=== PATIENT | female | born 1995 | race Caucasian/White ===

== ENCOUNTER 2020-02-05 10:31 | Emergency (ER) | payer OTHER, SELFPAY ==
[2020-02-05 10:38] VITALS: BP 144/89; PULSE 100; RESP 20; TEMP 36.9; O2SAT 100
--- NOTE | 2020-02-05 10:52 | ED.GENADULT ---
HPI - General Adult General Chief complaint: Skin/Abscess/Foreign Body Stated complaint: swollen upper hip/boil on left thigh Time Seen by Provider: 02/05/20 10:52 Source: patient and RN notes reviewed Mode of arrival: ambulatory Limitations: no limitations History of Present Illness HPI narrative: 24-year-old female presents with complaints of with LT inner upper thigh with redness, tenderness, and swelling and intermittent nausea for the past 4 days. Swelling and tenderness to upper lip since this morning at 02:00am this morning. Benadryl 50mg this moring with little relief for lip. Warm compresses and Neosporin without relief. Tender to touch. No drainage. History of skin abscess without MRSA diagnosis. No fever, chills, myalgia, or facial swelling. Nausea without abdominal pain or vomiting. LMP 4 weeks ago and concern she might be . Remains active. The patient reports she have not been diagnosed with COVID-19. The patient reports she is not waiting for the results of a COVID-19 lab test. The patient reports she do not have fever, chills, weakness, or fatigue. The patient reports she do not have a new or worsening cough or shortness of breath. Denies chest pain. The patient reports she do not have any rhinorrhea, congestion, loss of taste, sore throat, and diarrhea. Tolerating po intake well. Denies recent traveling. Denies concerns for COVID-19 or exposures been home with limited outdoor exposure except for essential household needs, work, and return home. At this time, patient is not suspected of having COVID-19. Some parts of this dictation were generated by voice recognition software and may contain typographical and/or grammatical inaccuracies. Related Data Home Medications Medication Instructions Recorded Confirmed albuterol sulfate 1 puff INHALATION QID 02/05/20 02/05/20 cetirizine 10 mg PO DAILY 02/05/20 02/05/20 clonazepam 0.5 mg PO DAILY 02/05/20 02/05/20 cyclobenzaprine 10 mg PO HS 02/05/20 02/05/20 famotidine 20 mg PO DAILY 02/05/20 02/05/20 fluticasone propionate 1 spray INTRANASAL BID 02/05/20 02/05/20 gabapentin 300 mg PO QID 02/05/20 02/05/20 lamotrigine 100 mg PO DAILY 02/05/20 02/05/20 lamotrigine 150 mg PO DAILY 02/05/20 02/05/20 linaclotide [Linzess] 290 mcg PO DAILY 02/05/20 02/05/20 pantoprazole [Protonix] 40 mg PO QAM 02/05/20 02/05/20 trazodone 100 mg PO HS 02/05/20 02/05/20 Allergies Allergy/AdvReac Type Severity Reaction Status Date / Time No Known Allergies Allergy Verified 02/05/20 10:38 Review of Systems Review of Systems: Narrative: CONSTITUTIONAL: Denies fever, chills, sweats. EYES: Denies visual changes, redness, discharge. ENT: Denies rhinorrhea, congestion, sore throat, otalgia. CARDIOVASCULAR: Denies chest pain, palpitations, edema. RESPIRATORY: Denies dyspnea, wheezing, cough. GASTROINTESTINAL: Denies abdominal pain, vomiting, diarrhea. Complains of intermittent nausea. GENITOURINARY: Denies dysuria, hematuria, abnormal discharge. SKIN: Denies drainage, rash or itching. Left inner upper thigh with redness, tenderness, swelling. MUSCULOSKELETAL: Denies acute back pain, joint pain, or myalgia. NEUROLOGIC: Denies numbness or focal weakness. PSYCHIATRIC: Denies anxiety or depression. All systems reviewed & are unremarkable except as noted in HPI and below. [facility] Past Medical History Medical History (Updated 02/05/20 @ 17:03 by ALAN Dorsey) Anxiety Asthma Depression IBS (irritable bowel syndrome) Neuropathy Surgical History Surgical History (Updated 02/05/20 @ 11:17 by ALAN Dorsey) History of cholecystectomy History of elbow surgery History of vulvar vestibulectomy Family History Family History (Updated 02/05/20 @ 11:18 by ALAN Dorsey) Father Alcoholic Substance abuse Mother Alive and well Social History Social History (Updated 02/05/20 @ 11:20 by ALAN Dorsey) Smoking packs per day: 0.5 S
== END 2020-02-05 11:32 | disposition home or self-care (01) ==
PROVIDERS: Emergency Provider Nurse Practitioner Family
DX: L02.416 Cutaneous abscess of left lower limb (principal); F17.210 Nicotine dependence, cigarettes, uncomplicated
CPT/HCPCS: 81025; 99213; G0463

== ENCOUNTER 2020-04-20 17:33 | Emergency (ER) | payer OTHER, SELFPAY ==
[2020-04-20 17:48] VITALS: BP 156/85; PULSE 116; RESP 16; TEMP 36.4; O2SAT 99
--- NOTE | 2020-04-20 18:09 | ED.SKABFB ---
HPI - Skin/Abscess/Foreign Bdy General Chief complaint: Skin/Abscess/Foreign Body Stated complaint: rash Time Seen by Provider: 04/20/20 18:09 Source: patient and RN notes reviewed Mode of arrival: ambulatory Limitations: no limitations History of Present Illness HPI narrative: 24-year-old female presents with multiple complaints. She reports area area on her right inner thigh that is painful, red, has been getting redder, reports she has been using hydrocortisone cream without relief. She also reports chronic sinus congestion for approximately 1 month causing sinus headaches. Reports she has been taking Sudafed and Flonase. She also reports a red painful bump under her nose. She denies fever, malaise, chills, sweats. MD complaint: abscess/boil Related Data Home Medications Medication Instructions Recorded Confirmed albuterol sulfate 1 puff INHALATION QID 02/05/20 04/20/20 cetirizine 10 mg PO DAILY 02/05/20 04/20/20 clonazepam 0.5 mg PO DAILY 02/05/20 04/20/20 cyclobenzaprine 10 mg PO HS 02/05/20 04/20/20 famotidine 20 mg PO DAILY 02/05/20 04/20/20 gabapentin 300 mg PO QID 02/05/20 04/20/20 lamotrigine 100 mg PO DAILY 02/05/20 04/20/20 lamotrigine 150 mg PO DAILY 02/05/20 04/20/20 linaclotide [Linzess] 290 mcg PO DAILY 02/05/20 04/20/20 pantoprazole [Protonix] 40 mg PO QAM 02/05/20 04/20/20 trazodone 100 mg PO HS 02/05/20 04/20/20 Allergies Allergy/AdvReac Type Severity Reaction Status Date / Time No Known Allergies Allergy Verified 04/20/20 17:57 Review of Systems Review of Systems: Narrative: CONSTITUTIONAL: Denies malaise, chills, sweats, or fever. EYES: Denies visual changes, redness, or discharge. ENT: Reports rhinorrhea, congestion, sinus pain. Denies otalgia or sore throat. CARDIOVASCULAR: Denies chest pain, palpitations, or edema. RESPIRATORY: Denies cough or dyspnea. GASTROINTESTINAL: Denies abdominal pain, nausea, vomiting, diarrhea SKIN: Reports a boil on her right inner thigh, reports a red bump under her nose MUSCULOSKELETAL: Denies myalgia. NEUROLOGIC: Reports headache. All systems reviewed & are unremarkable except as noted in HPI and below PMFSH Past Medical History Medical History (Updated 04/20/20 @ 18:22 by Ashlie Gross NP) Anxiety Asthma Depression IBS (irritable bowel syndrome) Neuropathy Surgical History Surgical History (Updated 02/05/20 @ 11:17 by ALAN Dorsey) History of cholecystectomy History of elbow surgery History of vulvar vestibulectomy Family History Family History (Updated 02/05/20 @ 11:18 by ALAN Dorsey) Father Alcoholic Substance abuse Mother Alive and well Social History Social History (Updated 02/05/20 @ 11:20 by ALAN Dorsey) Smoking packs per day: 0.5 Smoking cigarettes per day: 10.0 Years smoked: 11 Smoking pack-years: 5.50 Smoking status: Current every day smoker Tobacco type: cigarettes Second hand tobacco smoke exposure: No Alcohol intake: current Substance use: current Substance use type: marijuana Gender identity (if verbalized by the patient): Female Comments At time of signature, agree with nursing past medical, surgical, social and family history. There is no relevant family history pertinent to the presenting complaint Exam Narrative: Exam Narrative: GENERAL: Well-appearing, well-nourished, and in no acute distress. HEAD: Normocephalic, atraumatic. EYES: PERRLA, conjunctivae clear ENT: Nares clear, turbinates erythematous and edematous. Mucous membranes moist. TM pearly armstrong with dull light reflex bilaterally; no tragal tenderness. Oropharynx without erythema or lesions. Tonsils not enlarged and without exudate. NECK: Supple. No lymphadenopathy. CHEST: No respiratory distress. Clear to auscultation. No bony deformities, no asymmetry. Speaks in full sentences. HEART: Regular rate and rhythm. SKIN: Warm, dry, no rash. Erythematous papule, with central scab approximately 1
== END 2020-04-20 18:28 | disposition home or self-care (01) ==
PROVIDERS: Emergency Provider Nurse Practitioner
DX: L02.425 Furuncle of right lower limb (principal); J01.90 Acute sinusitis, unspecified; F17.210 Nicotine dependence, cigarettes, uncomplicated; J45.909 Unspecified asthma, uncomplicated; F41.9 Anxiety disorder, unspecified; F32.9 Major depressive disorder, single episode, unspecified; G62.9 Polyneuropathy, unspecified
CPT/HCPCS: 99213; G0463

== ENCOUNTER 2021-01-25 18:32 | Emergency (ER) | payer OTHER, SELFPAY ==
--- NOTE | ~2021-01-25 | CT_ITS ---
EXAMINATION: CT abdomen pelvis w con DATE: 01/25/2021 20:16 INDICATION: Generalized abdominal pain. TECHNIQUE: Computed tomography (CT) of the abdomen and pelvis was performed with 100 mL Omnipaque 350 intravenous contrast. Automated exposure control and iterative reconstruction technique were employe d. The dose-length product was 451.51 mGy-cm. COMPARISON: None. FINDINGS: The visualized portions of the lung bases are clear without pneumonia or pleural effusion. The heart size is normal. No pericardial effusion. The liver is normal. There are changes of cholecys tectomy. The spleen, pancreas, adrenal glands, and kidneys are normal. There are no dilated loops of bowel. The appendix is normal. There are no pathologically enlarged lymph nodes. There is no free int raperitoneal fluid. There is mild thoracolumbar spondylosis. IMPRESSION: 1. No etiology for the patient's symptoms. Reviewed, dictated and finalized at location A.
[2021-01-25 18:38] VITALS: BP 152/96; PULSE 110; RESP 15; TEMP 36.6; O2SAT 98
[2021-01-25 19:07] LABS: Basophils Absolute Auto 0.1 K/mm3 (0.0-0.1); Basophils Percent Auto 0.6 % (0.2-1.2); Eosinophils Absolute Auto 0.8 K/mm3 (0-0.3); Eosinophils Percent Auto 6.1 % (0-4.4); Hematocrit 37.4 % (37.0-47.0); Hemoglobin 12.2 g/dL (12.0-15.0); Immature Granulocyte Absolute 0.05 K/mm3 (0.00-0.031); Immature Granulocyte Percent A 0.4 % (0-0.5); Lymphocytes Absolute Auto 3.84 K/mm3 (0.9-3.2); Lymphocytes Percent Auto 30.8 % (18.3-44.2); Mean Corpuscular HGB Conc 32.6 g/dl (32-36); Mean Corpuscular Hemoglobin 30.6 pg (26-34); Mean Corpuscular Volume 93.7 fl (80-100); Mean Platelet Volume 9.3 fl (7.4-10.4); Monocytes Absolute Auto 0.9 K/mm3 (0.1-0.6); Monocytes Percent Auto 7.3 % (2.6-8.5); Neutrophils Absolute Auto 6.8 K/mm3 (1.3-6.7); Neutrophils Percent Auto 54.8 % (45.5-73.1); Platelet Count Result 381 k/mm3 (150-375); Red Blood Count 3.99 M/mm3 (4.2-5.4); Red Cell Distribution Width 11.9 % (11.5-14.5); White Blood Count 12.5 K/mm3 (4.5-10.0)
[2021-01-25 19:13] LABS: Alanine Aminotransferase 14 U/L (4-35); Albumin Level 4.3 g/dL (3.5-5.1); Alkaline Phosphatase 78 U/L (38-126); Anion Gap 7 mmol/L (8-16); Aspartate Amino Transferase 25 U/L (14-36); Bilirubin,Total 0.4 mg/dL (0.2-1.3); Blood Urea Nitrogen 5 mg/dL (7-17); Calcium 8.9 mg/dL (8.4-10.2); Carbon Dioxide 27 mmol/L (22-30); Chloride 100 mmol/L (98-107); Estimated CRCL calculation 107 ml/min; Estimated Glomerular Filt Rate > 60; Glucose 108 mg/dL (65-110); Lipase 43 U/L (23-300); Potassium 3.5 mmol/L (3.4-5.0); Sodium 134 mmol/L (137-145)
[2021-01-25 19:22] LABS: Add Urine Microscopic? YES; Appearance Urine Clear (Clear); Bilirubin Urine Negative (Negative); Blood Urine Negative (Negative); Color Urine Yellow (Yellow); Glucose Urine UA Negative (Negative); Ketones Urine Negative (Negative); Leukocyte Esterase Ur Trace LEU/UL (Negative); Nitrate Urine Negative (Negative); Protein Urine Negative (Negative); RBC Urine 0-2 /hpf (0-2); Specific Grav Ur 1.008 (1.001-1.035); Squamous Epithelial Cell Urine Moderate /hpf (Few); Urobilinogen Urine Negative mg/dL (<2.0); WBC Urine 0-3 /hpf
--- NOTE | 2021-01-25 19:46 | ED.ABDPAIN ---
HPI - Abdominal Pain General Chief Complaint: Abdominal Pain Stated Complaint: ABD Pain Time Seen by Provider: 01/25/21 18:38 Source: RN notes reviewed History of Present Illness HPI narrative: Patient presents emergency department from home for abdominal pain. Patient states pain began approximately 1 month ago. She states the pain is described as cramping and sharp and stabbing in nature she states it feels as her intestines are attacking themselves . States associated nausea vomiting and diarrhea. She denies any fevers or chills, chest pain shortness of breath or any other symptoms states she did not taking pain medication today Related Data Home Medications Medication Instructions Recorded Confirmed albuterol sulfate 1 puff INHALATION QID 02/05/20 04/20/20 cetirizine 10 mg PO DAILY 02/05/20 04/20/20 clonazepam 0.5 mg PO DAILY 02/05/20 04/20/20 cyclobenzaprine 10 mg PO HS 02/05/20 04/20/20 famotidine 20 mg PO DAILY 02/05/20 04/20/20 gabapentin 300 mg PO QID 02/05/20 04/20/20 lamotrigine 100 mg PO DAILY 02/05/20 04/20/20 lamotrigine 150 mg PO DAILY 02/05/20 04/20/20 linaclotide [Linzess] 290 mcg PO DAILY 02/05/20 04/20/20 pantoprazole [Protonix] 40 mg PO QAM 02/05/20 04/20/20 trazodone 100 mg PO HS 02/05/20 04/20/20 Allergies Allergy/AdvReac Type Severity Reaction Status Date / Time No Known Allergies Allergy Verified 04/20/20 17:57 Review of Systems Review of Systems: Gen.: Denies fevers or chills ENT: Denies congestion Respiratory: Denies shortness of breath or cough CV: Denies chest pain or palpitations GI: See HPI denies burning, urgency, frequency or hematuria Musculoskeletal: Denies back pain or muscle pain Neuro: Denies numbness, tingling, weakness or focal weakness Skin: Denies rash Except as documented, all other systems reviewed and negative. PMFSH Past Medical History Medical History Anxiety Asthma Depression IBS (irritable bowel syndrome) Neuropathy Surgical History Surgical History (Updated 02/05/20 @ 11:17 by ALAN Dorsey) History of cholecystectomy History of elbow surgery History of vulvar vestibulectomy Family History Family History (Updated 02/05/20 @ 11:18 by ALAN Dorsey) Father Alcoholic Substance abuse Mother Alive and well Social History Social History Smoking packs per day: 0.5 Smoking cigarettes per day: 10.0 Years smoked: 11 Smoking pack-years: 5.50 Smoking status: Current every day smoker Tobacco type: cigarettes Second hand tobacco smoke exposure: No Alcohol intake: current Substance use: current Substance use type: marijuana Gender identity (if verbalized by the patient): Female Exam Narrative: APPEARANCE: No acute distress, nontoxic, resting in bed HEENT: Normocephalic, atraumatic, OMM RESPIRATORY: No respiratory distress, clear to auscultation bilaterally with no rhonchi wheezing or rales CARDIOVASCULAR: RRR s murmur ABDOMINAL: Soft nondistended diffusely tender palpation no rebound or guarding MUSCULOSKELETAl: Moves all extremities. No clubbing, cyanosis or edema. NEURO: Awake and alert. Following commands, speech normal, no focal deficits SKIN:: Warm, dry. Normal Color PSYCHIATRIC: Normal affect/mood Course Course Emergency Course: Patient states that she is ready for discharge at this time as his ride is coming Repeat abdominal exam shows the patient's abdomen to be soft with no surgical abdomen present.. Discussed with patient results of workup and diagnosis. Discussed need for follow-up with primary care physician, reasons to return to the emergency department in proper use of medication. Patient understands and agrees to current treatment plan Vital Signs Vital signs: Vital Signs Temperature 98 F 01/25/21 18:38 Pulse Rate 110 H 01/25/21 18:38 Respiratory Rate 15 01/25/21 18:
[2021-01-25] MEDS: KETOROLAC 30 MG/ML VIAL (*BKC) IV PUSH (19:51)
[2021-01-25] MEDS: SODIUM CHLORIDE 0.9% IV 1,000 ML 999 ML IV CONT ×2 (19:51→21:29)
[2021-01-25] MEDS: DICYCLOMINE HCL INJ 20 MG/2 ML VIAL IM (21:28)
[2021-01-25 21:41] VITALS: BP 127/82; PULSE 79; RESP 18; O2SAT 98
== END 2021-01-25 22:06 | disposition home or self-care (01) ==
PROVIDERS: Emergency Provider Emergency Medicine; PCP Family Medicine
DX: R10.9 Unspecified abdominal pain (principal); R11.2 Nausea with vomiting, unspecified; R19.7 Diarrhea, unspecified; J45.909 Unspecified asthma, uncomplicated; K58.9 Irritable bowel syndrome, unspecified; G62.9 Polyneuropathy, unspecified; F41.9 Anxiety disorder, unspecified; F32.9 Major depressive disorder, single episode, unspecified; F17.210 Nicotine dependence, cigarettes, uncomplicated
CPT/HCPCS: 36415; 74177; 80053; 81001; 81025; 83690; 85025; 96361; 96372; 96374; 99284; J0500; J1885; J7030; Q9967

== ENCOUNTER 2021-08-10 17:48 | Emergency (ER) | payer OTHER, SELFPAY ==
[2021-08-10 18:00] VITALS: BP 152/96; PULSE 81; RESP 18; TEMP 37; O2SAT 99
[2021-08-10 18:15] VITALS: BP 152/96; PULSE 81; RESP 18; TEMP 37; O2SAT 99
--- NOTE | 2021-08-10 18:16 | ED.URI ---
HPI - URI/Sore Throat General Chief Complaint: Upper Respiratory Infection Stated Complaint: no smell no taste sore throat and dizzy Time Seen by Provider: 08/10/21 18:16 Source: patient and RN notes reviewed Mode of arrival: ambulatory Limitations: no limitations History of Present Illness HPI Narrative: 25-year-old female presents with concern for 3-day history of sore throat, ear pain, sweating, loss of taste and smell, dizziness. She reports left ear pain. Reports she has been taking some [id number] medications without relief. She denies known sick contacts. MD elicited complaint: sore throat and other (Loss of taste and smell) Related Data Home Medications Medication Instructions Recorded Confirmed albuterol sulfate 1 puff INHALATION QID 02/05/20 08/10/21 clonazepam 0.5 mg PO DAILY 02/05/20 08/10/21 cyclobenzaprine 10 mg PO HS 02/05/20 08/10/21 famotidine 20 mg PO DAILY 02/05/20 08/10/21 gabapentin 300 mg PO QID 02/05/20 08/10/21 lamotrigine 150 mg PO DAILY 02/05/20 08/10/21 linaclotide [Linzess] 290 mcg PO DAILY 02/05/20 08/10/21 trazodone 100 mg PO HS 02/05/20 08/10/21 azelastine 137 mcg (0.1 %) nasal 1 spray INTRANASAL Q12H 02/04/21 08/10/21 spray aerosol cyclobenzaprine 10 mg tablet 10 mg PO TID 02/04/21 08/10/21 venlafaxine 75 mg capsule,extended 75 mg PO QPM 02/04/21 08/10/21 release 24 hr cariprazine [Vraylar] 3 mg PO DAILY 08/10/21 08/10/21 Allergies Allergy/AdvReac Type Severity Reaction Status Date / Time No Known Allergies Allergy Verified 08/10/21 17:55 Review of Systems Review of Systems: CONSTITUTIONAL: Denies malaise, chills, sweats, or fever. EYES: Denies visual changes, redness, or discharge. ENT: Reports rhinorrhea, congestion, sneezing, sinus pain, otalgia and sore throat. CARDIOVASCULAR: Denies chest pain, palpitations, or edema. RESPIRATORY: Reports occasional cough. Denies dyspnea. GASTROINTESTINAL: Denies abdominal pain, nausea, vomiting, diarrhea SKIN: Denies rash or itching. MUSCULOSKELETAL: Denies myalgia. NEUROLOGIC: Denies headache. All systems reviewed & are unremarkable except as noted in HPI and below PMFSH Past Medical History Medical History (Updated 08/10/21 @ 18:47 by Ashlie Gross NP) Abdominal bloating Anxiety Asthma Constipation Depression GERD (gastroesophageal reflux disease) IBS (irritable bowel syndrome) Nausea & vomiting Neuropathy Obese Tobacco abuse Surgical History Surgical History History of cholecystectomy History of elbow surgery History of vulvar vestibulectomy Family History Family History Father Alcoholic Substance abuse Mother Alive and well Social History Social History Smoking packs per day: 0.5 Smoking cigarettes per day: 10.0 Years smoked: 11 Smoking pack-years: 5.50 Smoking status: Current every day smoker Tobacco type: cigarettes Second hand tobacco smoke exposure: No Alcohol intake: current Substance use: current Substance use type: marijuana Gender identity (if verbalized by the patient): Female Comments At time of signature, agree with nursing past medical, surgical, social and family history. There is no relevant family history pertinent to the presenting complaint Exam Narrative: GENERAL: Well-appearing, well-nourished, and in no acute distress. HEAD: Normocephalic EYES: PERRLA, conjunctivae clear ENT: Nares clear, turbinates edematous and erythematous, clear discharge. Mucous membranes moist. TM pearly armstrong with dull light reflex bilaterally; left tragal tenderness with auditory canal erythema and edema, no purulent drainage. Oropharynx not erythematous without lesions. Tonsils not enlarged and without exudate, no drooling, no hoarseness, no trismus, uvula midline. NECK: Supple. No lymphadenopathy CHEST: Clear to au
[2021-08-10 18:42] LABS: SARS-CoV-2 RNA PCR Negative
== END 2021-08-10 18:50 | disposition home or self-care (01) ==
PROVIDERS: Emergency Provider Nurse Practitioner; PCP Family Medicine
DX: J06.9 Acute upper respiratory infection, unspecified (principal); H60.502 Unspecified acute noninfective otitis externa, left ear; Z20.822 Contact with and (suspected) exposure to COVID-19; F17.210 Nicotine dependence, cigarettes, uncomplicated; F12.90 Cannabis use, unspecified, uncomplicated; J45.909 Unspecified asthma, uncomplicated; G62.9 Polyneuropathy, unspecified; F32.A Depression, unspecified; F41.9 Anxiety disorder, unspecified
CPT/HCPCS: 87081; 87426; 87804; 87880; 99213; C9803; G0463; U0003; U0005